=== PATIENT | male | born 1975 | race Asian ===

== ENCOUNTER 2021-01-11 12:28 | Inpatient (IN) | payer OTHER ==
[~2021-01-11] VITALS: Ht 154.9 cm; Wt 68.5 kg
[2021-01-11 13:26] LABS: BASOPHILS % (AUTO) 0 % (0-1); EOSINOPHILS % (AUTO) 0 % (1-7); LYMPHOCYTES % (AUTO) 6 % (22-44); MEAN CORPUSCULAR HEMOGLOBIN 30.7 pg (27.5-34.5); MEAN CORPUSCULAR HGB CONC 34.6 g/dL (33.2-36.2); MONOCYTES % (AUTO) 5 % (2-9); NEUTROPHILS % (AUTO) 88 % (42-75); PLATELET COUNT 120 x10^3/uL (130-400); RED BLOOD COUNT 4.74 x10^6/uL (4.38-5.82)
[2021-01-11 13:36] LABS: ALBUMIN 2.9 g/dL (3.4-5.0); ANION GAP 7 mmol/L (5-15); CHLORIDE 98 mmol/L (98-107); CREATININE 0.88 mg/dL (0.7-1.3)
--- NOTE | 2021-01-11 14:29 | NUR ---
BREAK NOTE: PT. IS RESTING WITHOUT CONCERNS. PT. WAS GIVEN ICE CHIPS FOR HIS MOUTH.
[2021-01-11] MEDS ORDERED: DEXAMETHASONE 4 MG/ML, 1ML ONE ×2 (14:45→16:34)
[2021-01-11] MEDS ORDERED: SODIUM CHLORIDE 0.9% 1,000ML IVBOLUS ONE (15:00)
[2021-01-11] MEDS ORDERED: DEXAMETHASONE 4 MG/ML, 1ML IV ONE (15:00)
--- NOTE | 2021-01-11 15:01 | NUR ---
PT RESTING IN BED. FLUIDS INFUSING. CALL LIGHT IN REACH. VSS
[2021-01-11 15:41] LABS: C-REACTIVE PROTEIN, QUANT 9.2 mg/dL (0.02-0.49)
[2021-01-11 15:43] LABS: D-DIMER (DIC) 2.37 ug/mlFEU (0.00-0.52); PROTIME 10.5 Seconds (9.6-11.5)
[2021-01-11] MEDS ORDERED: ONDANSETRON 2MG/ML, 2ML IVPush PRN (16:00)
[2021-01-11] MEDS ORDERED: ENALAPRILAT 1.25 MG/ML, 2ML IVPush PRN (16:00)
[2021-01-11] MEDS ORDERED: CHOLECALCIFEROL 5,000u TAB ONE (16:34)
[2021-01-11] MEDS ORDERED: ZINC SULFATE 220 MG CAPSULE ONE (16:34)
[2021-01-11] MEDS ORDERED: ASCORBIC ACID 500 MG TABLET ONE (16:34)
[2021-01-11] MEDS ORDERED: ENOXAPARIN 40 MG/0.4 ML ONE (16:34)
[2021-01-11] MEDS: ASCORBIC ACID 500 MG TABLET PO SCH (16:36)
[2021-01-11] MEDS: ZINC SULFATE 220 MG CAPSULE PO SCH (16:36)
[2021-01-11] MEDS: ENOXAPARIN 40 MG/0.4 ML SQ SCH (16:37)
[2021-01-11] MEDS: CHOLECALCIFEROL 5,000u TAB PO SCH (16:37)
[2021-01-11] MEDS ORDERED: OMNIPAQUE 350 MG/ML, 100ML BOTTLE ONE (17:07)
--- NOTE | 2021-01-11 17:15 | NUR ---
FOOD DELIEVERED TO PT
--- NOTE | 2021-01-11 17:21 | NUR ---
PT OXYGEN DROPPED TO 79% WHILE EATING. INCREASED O2 UP TO 7L NC AND TOLD PT TO EAT SLOWLY AND TAKE DEEP BREATHS OFTEN.
[2021-01-11 17:40] LABS: ALANINE AMINOTRANSFERASE 102 U/L (12-78); ALBUMIN 2.7 g/dL (3.4-5.0); ANION GAP 7 mmol/L (5-15); CALCIUM 8.1 mg/dL (8.5-10.1); CHLORIDE 100 mmol/L (98-107)
[2021-01-11 17:42] LABS: ALKALINE PHOSPHATASE 54 U/L (45-117); BILIRUBIN,TOTAL 0.7 mg/dL (0.2-1.0); TOTAL PROTEIN 7.1 g/dL (6.4-8.2)
[2021-01-11] MEDS ORDERED: REMDESIVIR 200 MG in SODIUM CHLORIDE 0.9% 100 ML IVPB ONE (18:00)
[2021-01-11] MEDS: CEFTRIAXONE 2 GM in DEXTROSE 5% 50 ML IVPB SCH (18:10)
[2021-01-11] MEDS: DOXYCYCLINE 100MG TABLET PO SCH (18:10)
[2021-01-11 18:42] VITALS: BP 119/73
[2021-01-12 00:20] VITALS: BP 99/66
[2021-01-12 02:49] LABS: CLOSTRIDIUM DIFFICILE ANTIGEN NEGATIVE; CLOSTRIDIUM DIFFICILE TOXIN NEGATIVE (Negative)
[2021-01-12 05:10] LABS: BASOPHILS % (AUTO) 0 % (0-1); EOSINOPHILS % (AUTO) 0 % (1-7); LYMPHOCYTES % (AUTO) 7 % (22-44); MEAN CORPUSCULAR HEMOGLOBIN 30.8 pg (27.5-34.5); MEAN PLATELET VOLUME 8.6 fL (7.4-10.4); MONOCYTES % (AUTO) 6 % (2-9); NEUTROPHILS % (AUTO) 88 % (42-75); PLATELET COUNT 128 x10^3/uL (130-400); RED BLOOD COUNT 4.62 x10^6/uL (4.38-5.82); RED CELL DISTRIBUTION WIDTH 12.9 % (9.4-14.8)
[2021-01-12 05:22] LABS: ALBUMIN 2.4 g/dL (3.4-5.0); ANION GAP 7 mmol/L (5-15); CALCIUM 8.2 mg/dL (8.5-10.1); CHLORIDE 101 mmol/L (98-107)
[2021-01-12 05:26] LABS: ALANINE AMINOTRANSFERASE 82 U/L (12-78); ALKALINE PHOSPHATASE 56 U/L (45-117); BILIRUBIN,TOTAL 0.5 mg/dL (0.2-1.0); CREATININE 0.69 mg/dL (0.7-1.3); TOTAL PROTEIN 6.7 g/dL (6.4-8.2)
[2021-01-12 07:06] VITALS: BP 108/65
[2021-01-12] MEDS: ASCORBIC ACID 500 MG TABLET PO SCH ×2 (07:57→16:06)
[2021-01-12 08:23] VITALS: BP 120/70
[2021-01-12] MEDS: ZINC SULFATE 220 MG CAPSULE PO SCH (08:33)
[2021-01-12] MEDS: DOXYCYCLINE 100MG TABLET PO SCH ×2 (08:33→20:02)
[2021-01-12] MEDS: CHOLECALCIFEROL 5,000u TAB PO SCH (08:34)
[2021-01-12] MEDS: DEXAMETHASONE 4 MG/ML, 1ML IVPush SCH (08:34)
[2021-01-12] MEDS ORDERED: THIAMINE 100MG TABLET PO ONE (09:00)
[2021-01-12 13:07] VITALS: BP 120/88
[2021-01-12] MEDS: ENOXAPARIN 40 MG/0.4 ML SQ SCH (16:06)
[2021-01-12] MEDS: CEFTRIAXONE 2 GM in DEXTROSE 5% 50 ML IVPB SCH (17:54)
[2021-01-12] MEDS: REMDESIVIR 100 MG in SODIUM CHLORIDE 0.9% 100 ML IVPB SCH (18:37)
[2021-01-12 19:47] VITALS: BP 114/77
[2021-01-13 01:14] VITALS: BP 112/70
[2021-01-13] MEDS: ZINC SULFATE 220 MG CAPSULE PO SCH (08:49)
[2021-01-13] MEDS: CHOLECALCIFEROL 5,000u TAB PO SCH (08:49)
[2021-01-13] MEDS: ASCORBIC ACID 500 MG TABLET PO SCH ×2 (08:49→16:00)
[2021-01-13] MEDS: DOXYCYCLINE 100MG TABLET PO SCH ×2 (08:49→20:45)
[2021-01-13] MEDS: DEXAMETHASONE 4 MG/ML, 1ML IVPush SCH (08:51)
[2021-01-13 08:52] VITALS: BP 110/67
[2021-01-13 09:24] LABS: ALBUMIN 2.5 g/dL (3.4-5.0); ANION GAP 9 mmol/L (5-15); CALCIUM 8.5 mg/dL (8.5-10.1); CHLORIDE 102 mmol/L (98-107)
[2021-01-13 09:25] LABS: BASOPHILS % (AUTO) 0 % (0-1); EOSINOPHILS % (AUTO) 0 % (1-7); HCT (SEDRATE) 42.7 % (39.2-51.8); LYMPHOCYTES % (AUTO) 9 % (22-44); MEAN CORPUSCULAR HEMOGLOBIN 30.6 pg (27.5-34.5); MEAN CORPUSCULAR HGB CONC 34.7 g/dL (33.2-36.2); MEAN PLATELET VOLUME 8.2 fL (7.4-10.4); MONOCYTES % (AUTO) 9 % (2-9); NEUTROPHILS % (AUTO) 83 % (42-75); PLATELET COUNT 204 x10^3/uL (130-400); RED BLOOD COUNT 4.84 x10^6/uL (4.38-5.82); RED CELL DISTRIBUTION WIDTH 13.4 % (9.4-14.8)
[2021-01-13 09:30] LABS: D-DIMER 4.12 ug/mlFEU (0.00-0.52)
[2021-01-13 09:45] LABS: ALANINE AMINOTRANSFERASE 70 U/L (12-78); ALKALINE PHOSPHATASE 71 U/L (45-117); BILIRUBIN,TOTAL 0.7 mg/dL (0.2-1.0); CREATININE 0.66 mg/dL (0.7-1.3); TOTAL PROTEIN 6.6 g/dL (6.4-8.2)
[2021-01-13] MEDS ORDERED: FUROSEMIDE 40 MG/4 ML IV ONE (11:30)
[2021-01-13 12:22] VITALS: BP 106/67
[2021-01-13] MEDS: ENOXAPARIN 40 MG/0.4 ML SQ SCH (15:59)
[2021-01-13] MEDS: REMDESIVIR 100 MG in SODIUM CHLORIDE 0.9% 100 ML IVPB SCH (17:00)
[2021-01-13] MEDS: CEFTRIAXONE 2 GM in DEXTROSE 5% 50 ML IVPB SCH (17:49)
[2021-01-13 20:40] VITALS: BP 114/64
[2021-01-14 02:00] VITALS: BP 109/68
[2021-01-14 04:22] LABS: BASOPHILS % (AUTO) 0 % (0-1); EOSINOPHILS % (AUTO) 0 % (1-7); LYMPHOCYTES % (AUTO) 7 % (22-44); MEAN CORPUSCULAR HEMOGLOBIN 30.8 pg (27.5-34.5); MEAN CORPUSCULAR HGB CONC 35.6 g/dL (33.2-36.2); MEAN PLATELET VOLUME 7.8 fL (7.4-10.4); MONOCYTES % (AUTO) 10 % (2-9); NEUTROPHILS % (AUTO) 84 % (42-75); PLATELET COUNT 222 x10^3/uL (130-400); RED BLOOD COUNT 4.85 x10^6/uL (4.38-5.82); RED CELL DISTRIBUTION WIDTH 12.8 % (9.4-14.8)
[2021-01-14 04:23] LABS: HCT (SEDRATE) 42.2 % (39.2-51.8)
[2021-01-14 04:34] LABS: ALBUMIN 2.4 g/dL (3.4-5.0); ANION GAP 9 mmol/L (5-15); CHLORIDE 98 mmol/L (98-107)
[2021-01-14 04:51] LABS: ALANINE AMINOTRANSFERASE 68 U/L (12-78); ALKALINE PHOSPHATASE 79 U/L (45-117); BILIRUBIN,TOTAL 0.9 mg/dL (0.2-1.0); TOTAL PROTEIN 6.4 g/dL (6.4-8.2)
[2021-01-14] MEDS: ZINC SULFATE 220 MG CAPSULE PO SCH (07:54)
[2021-01-14] MEDS: FUROSEMIDE 20 MG/2 ML IV SCH ×2 (07:54→16:40)
[2021-01-14] MEDS: DOXYCYCLINE 100MG TABLET PO SCH ×2 (07:54→20:03)
[2021-01-14] MEDS: DEXAMETHASONE 4 MG/ML, 1ML IVPush SCH (07:55)
[2021-01-14] MEDS: ASCORBIC ACID 500 MG TABLET PO SCH ×2 (07:55→16:40)
[2021-01-14] MEDS: CHOLECALCIFEROL 5,000u TAB PO SCH (07:55)
[2021-01-14] MEDS: ENOXAPARIN 40 MG/0.4 ML SQ SCH ×2 (07:57→20:03)
[2021-01-14 08:12] VITALS: BP 109/69
[2021-01-14 15:59] VITALS: BP 106/63
[2021-01-14] MEDS: REMDESIVIR 100 MG in SODIUM CHLORIDE 0.9% 100 ML IVPB SCH (16:41)
[2021-01-14] MEDS: CEFTRIAXONE 2 GM in DEXTROSE 5% 50 ML IVPB SCH (18:11)
[2021-01-14 19:57] VITALS: BP 95/58
[2021-01-15 00:41] VITALS: BP 112/78
[2021-01-15 05:14] LABS: CHLORIDE 96 mmol/L (98-107)
[2021-01-15 05:20] LABS: ALANINE AMINOTRANSFERASE 65 U/L (12-78); ALBUMIN 2.8 g/dL (3.4-5.0); ALKALINE PHOSPHATASE 79 U/L (45-117); ANION GAP 9 mmol/L (5-15); BILIRUBIN,TOTAL 1.3 mg/dL (0.2-1.0); CALCIUM 8.4 mg/dL (8.5-10.1); CREATININE 0.81 mg/dL (0.7-1.3); TOTAL PROTEIN 6.9 g/dL (6.4-8.2)
[2021-01-15 08:01] VITALS: BP 103/59
[2021-01-15] MEDS: FUROSEMIDE 20 MG/2 ML IV SCH ×3 (08:19→20:18)
[2021-01-15] MEDS: DOXYCYCLINE 100MG TABLET PO SCH ×2 (08:20→21:26)
[2021-01-15] MEDS: ASCORBIC ACID 500 MG TABLET PO SCH ×2 (08:20→17:22)
[2021-01-15] MEDS: ZINC SULFATE 220 MG CAPSULE PO SCH (08:20)
[2021-01-15] MEDS: CHOLECALCIFEROL 5,000u TAB PO SCH (08:20)
[2021-01-15] MEDS: DEXAMETHASONE 4 MG/ML, 1ML IVPush SCH (08:20)
[2021-01-15] MEDS: ENOXAPARIN 40 MG/0.4 ML SQ SCH ×2 (08:20→21:26)
[2021-01-15 13:00] VITALS: BP 110/67
[2021-01-15] MEDS: REMDESIVIR 100 MG in SODIUM CHLORIDE 0.9% 100 ML IVPB SCH ×2 (17:23→20:18)
[2021-01-15] MEDS: CEFTRIAXONE 2 GM in DEXTROSE 5% 50 ML IVPB SCH (21:27)
[2021-01-15 21:58] VITALS: BP 107/60
[2021-01-16 00:35] VITALS: BP 109/58
[2021-01-16] MEDS ORDERED: PHENYLEPHRINE NASAL 1%, 15ML SPRAY NAS PRN (02:00)
[2021-01-16] MEDS: DOXYCYCLINE 100MG TABLET PO SCH ×2 (09:39→21:46)
[2021-01-16] MEDS: CHOLECALCIFEROL 5,000u TAB PO SCH (09:39)
[2021-01-16] MEDS: ZINC SULFATE 220 MG CAPSULE PO SCH (09:39)
[2021-01-16] MEDS: ENOXAPARIN 40 MG/0.4 ML SQ SCH ×2 (09:39→21:46)
[2021-01-16] MEDS: ASCORBIC ACID 500 MG TABLET PO SCH ×2 (09:39→17:37)
[2021-01-16] MEDS: FUROSEMIDE 20 MG/2 ML IV SCH ×2 (09:40→17:37)
[2021-01-16] MEDS: DEXAMETHASONE 4 MG/ML, 1ML IVPush SCH (09:40)
[2021-01-16 12:52] VITALS: BP 107/66
[2021-01-16] MEDS: CEFTRIAXONE 2 GM in DEXTROSE 5% 50 ML IVPB SCH (17:37)
[2021-01-16 21:50] VITALS: BP 105/66
[2021-01-17 00:39] VITALS: BP 106/61
[2021-01-17 08:00] VITALS: BP 112/65
[2021-01-17] MEDS: FUROSEMIDE 20 MG/2 ML IV SCH ×2 (08:24→16:34)
[2021-01-17] MEDS: DOXYCYCLINE 100MG TABLET PO SCH ×2 (08:25→20:58)
[2021-01-17] MEDS: ZINC SULFATE 220 MG CAPSULE PO SCH (08:25)
[2021-01-17] MEDS: CHOLECALCIFEROL 5,000u TAB PO SCH (08:25)
[2021-01-17] MEDS: ASCORBIC ACID 500 MG TABLET PO SCH ×2 (08:25→16:34)
[2021-01-17] MEDS: DEXAMETHASONE 4 MG/ML, 1ML IVPush SCH (08:25)
[2021-01-17 08:26] LABS: FIO2 100 %; O2 FLOW 45 L/min
[2021-01-17] MEDS: ENOXAPARIN 40 MG/0.4 ML SQ SCH ×2 (08:26→20:58)
[2021-01-17 09:05] LABS: BASOPHILS % (AUTO) 0 % (0-1); EOSINOPHILS % (AUTO) 0 % (1-7); LYMPHOCYTES % (AUTO) 4 % (22-44); MEAN CORPUSCULAR HEMOGLOBIN 31.1 pg (27.5-34.5); MEAN CORPUSCULAR HGB CONC 35.9 g/dL (33.2-36.2); MEAN PLATELET VOLUME 8.2 fL (7.4-10.4); MONOCYTES % (AUTO) 2 % (2-9); NEUTROPHILS % (AUTO) 95 % (42-75); PLATELET COUNT 270 x10^3/uL (130-400); RED BLOOD COUNT 4.98 x10^6/uL (4.38-5.82); RED CELL DISTRIBUTION WIDTH 12.7 % (9.4-14.8)
[2021-01-17 09:10] LABS: HCT (SEDRATE) 43.1 % (39.2-51.8)
[2021-01-17 11:08] LABS: ALANINE AMINOTRANSFERASE 41 U/L (12-78); ALBUMIN 2.6 g/dL (3.4-5.0); ANION GAP 16 mmol/L (5-15); CALCIUM 8.1 mg/dL (8.5-10.1); CHLORIDE 92 mmol/L (98-107)
[2021-01-17 11:10] LABS: ALKALINE PHOSPHATASE 89 U/L (45-117); BILIRUBIN,TOTAL 1.8 mg/dL (0.2-1.0); TOTAL PROTEIN 6.9 g/dL (6.4-8.2)
[2021-01-17 12:29] VITALS: BP 114/73
[2021-01-17] MEDS ORDERED: POTASSIUM CHLORIDE 20 MEQ TAB.ER.PRT PO ONE (13:00)
[2021-01-17] MEDS ORDERED: TOCILIZUMAB 600 MG in SODIUM CHLORIDE 0.9% 70 ML IVPB ONE (14:00)
[2021-01-17] MEDS ORDERED: FILTER 0.22 MICRON IV ONE (14:00)
[2021-01-17] MEDS: CEFTRIAXONE 2 GM in DEXTROSE 5% 50 ML IVPB SCH (16:34)
[2021-01-17 20:45] VITALS: BP 112/60
[2021-01-18] VITALS (23 sets, daily range): BP systolic 86–168; BP diastolic 51–118
[2021-01-18 03:46] LABS: ANION GAP 11 mmol/L (5-15); CALCIUM 7.7 mg/dL (8.5-10.1); CHLORIDE 91 mmol/L (98-107); CREATININE 0.73 mg/dL (0.7-1.3)
[2021-01-18] MEDS ORDERED: POTASSIUM CHLORIDE 20 MEQ TAB.ER.PRT PO SCH (08:00)
[2021-01-18] MEDS: ENOXAPARIN 40 MG/0.4 ML SQ SCH ×2 (08:02→21:27)
[2021-01-18] MEDS: POTASSIUM CHLORIDE 20 MEQ TAB.ER.PRT PO SCH (08:03)
[2021-01-18] MEDS: FUROSEMIDE 40 MG/4 ML IV SCH ×2 (08:03→17:36)
[2021-01-18] MEDS: DOXYCYCLINE 100MG TABLET PO SCH ×2 (08:03→21:27)
[2021-01-18] MEDS: ZINC SULFATE 220 MG CAPSULE PO SCH (08:03)
[2021-01-18] MEDS: CHOLECALCIFEROL 5,000u TAB PO SCH (08:03)
[2021-01-18] MEDS: ASCORBIC ACID 500 MG TABLET PO SCH ×2 (08:03→17:21)
[2021-01-18] MEDS: DEXAMETHASONE 4 MG/ML, 1ML IVPush SCH (08:04)
[2021-01-18] MEDS: CEFTRIAXONE 2 GM in DEXTROSE 5% 50 ML IVPB SCH (17:22)
[2021-01-18] MEDS: MIDODRINE 5 MG TABLET PO SCH ×2 (17:42→21:27)
[2021-01-19] VITALS (12 sets, daily range): BP systolic 90–108; BP diastolic 52–68
[2021-01-19 06:21] LABS: BASOPHILS % (AUTO) 0 % (0-1); EOSINOPHILS % (AUTO) 2 % (1-7); LYMPHOCYTES % (AUTO) 1 % (22-44); MEAN CORPUSCULAR HEMOGLOBIN 30.5 pg (27.5-34.5); MEAN CORPUSCULAR HGB CONC 34.5 g/dL (33.2-36.2); MONOCYTES % (AUTO) 2 % (2-9); NEUTROPHILS % (AUTO) 95 % (42-75); PLATELET COUNT 299 x10^3/uL (130-400); RED CELL DISTRIBUTION WIDTH 13.3 % (9.4-14.8)
[2021-01-19 06:27] LABS: ALBUMIN 2.1 g/dL (3.4-5.0); ANION GAP 8 mmol/L (5-15); CALCIUM 7.9 mg/dL (8.5-10.1); CHLORIDE 94 mmol/L (98-107)
[2021-01-19 06:31] LABS: ALANINE AMINOTRANSFERASE 28 U/L (12-78); ALKALINE PHOSPHATASE 131 U/L (45-117); CREATININE 0.89 mg/dL (0.7-1.3); TOTAL PROTEIN 6.5 g/dL (6.4-8.2)
[2021-01-19] MEDS: FUROSEMIDE 40 MG/4 ML IV SCH ×2 (07:54→18:12)
[2021-01-19] MEDS: POTASSIUM CHLORIDE 20 MEQ TAB.ER.PRT PO SCH (07:55)
[2021-01-19] MEDS: ASCORBIC ACID 500 MG TABLET PO SCH ×2 (07:55→18:11)
[2021-01-19] MEDS: CHOLECALCIFEROL 5,000u TAB PO SCH (09:54)
[2021-01-19] MEDS: ZINC SULFATE 220 MG CAPSULE PO SCH (09:54)
[2021-01-19] MEDS: DOXYCYCLINE 100MG TABLET PO SCH (09:54)
[2021-01-19] MEDS: ENOXAPARIN 40 MG/0.4 ML SQ SCH (09:55)
[2021-01-19] MEDS: DEXAMETHASONE 4 MG/ML, 1ML IVPush SCH (09:55)
[2021-01-19] MEDS: MIDODRINE 5 MG TABLET PO SCH ×3 (10:04→21:03)
[2021-01-19] MEDS: THIAMINE 100MG TABLET PO SCH (18:11)
[2021-01-19] MEDS: ENOXAPARIN 60 MG/0.6 ML SQ SCH (22:18)
[2021-01-20 02:56] VITALS: BP 100/62
[2021-01-20 05:13] LABS: BASOPHILS % (AUTO) 0 % (0-1); EOSINOPHILS % (AUTO) 2 % (1-7); LYMPHOCYTES % (AUTO) 1 % (22-44); MEAN CORPUSCULAR HEMOGLOBIN 30.3 pg (27.5-34.5); MONOCYTES % (AUTO) 2 % (2-9); NEUTROPHILS % (AUTO) 96 % (42-75); PLATELET COUNT 213 x10^3/uL (130-400); RED BLOOD COUNT 5.12 x10^6/uL (4.38-5.82); RED CELL DISTRIBUTION WIDTH 13.1 % (9.4-14.8)
[2021-01-20 05:22] LABS: ALBUMIN 2.5 g/dL (3.4-5.0); ANION GAP 9 mmol/L (5-15); CALCIUM 8.3 mg/dL (8.5-10.1); CHLORIDE 94 mmol/L (98-107)
[2021-01-20 05:28] LABS: ALANINE AMINOTRANSFERASE 23 U/L (12-78); ALKALINE PHOSPHATASE 165 U/L (45-117); CREATININE 0.85 mg/dL (0.7-1.3); TOTAL PROTEIN 6.8 g/dL (6.4-8.2)
[2021-01-20 08:00] VITALS: BP 110/74
[2021-01-20] MEDS ORDERED: ZINC SULFATE 220 MG CAPSULE PO ONE (09:00)
[2021-01-20] MEDS ORDERED: CHOLECALCIFEROL 5,000u TAB PO ONE (09:00)
[2021-01-20] MEDS: POTASSIUM CHLORIDE 20 MEQ TAB.ER.PRT PO SCH (09:21)
[2021-01-20] MEDS: DEXAMETHASONE 4 MG/ML, 1ML IVPush SCH (09:21)
[2021-01-20] MEDS: THIAMINE 100MG TABLET PO SCH (09:21)
[2021-01-20] MEDS: FUROSEMIDE 40 MG/4 ML IV SCH ×2 (09:21→21:06)
[2021-01-20] MEDS: ASCORBIC ACID 500 MG TABLET PO SCH ×2 (09:22→21:06)
[2021-01-20] MEDS: ENOXAPARIN 60 MG/0.6 ML SQ SCH ×2 (09:22→21:06)
[2021-01-20] MEDS: MIDODRINE 5 MG TABLET PO SCH ×3 (09:22→21:06)
[2021-01-20] MEDS ORDERED: PROPOFOL 100 ML IV ONE ×2 (12:30→17:32)
[2021-01-20] MEDS ORDERED: FENTANYL PF 100 MCG/2ML ONE (13:45)
[2021-01-20] MEDS ORDERED: LIDOCAINE-MPF 1%, 2ML ONE (14:21)
[2021-01-20] MEDS: MIDAZOLAM HCL 50 MG in SODIUM CHLORIDE 0.9% 40 ML IV PRN (14:29)
[2021-01-20] MEDS: FENTANYL PF 100 MCG/2ML IVPush PRN (14:30)
[2021-01-20] MEDS ORDERED: FENTANYL PF 100 MCG/2ML IVPush ONE (14:30)
[2021-01-20] MEDS ORDERED: TPN PER PHARMACY MC SCH (17:00)
[2021-01-20] MEDS ORDERED: DEXTROSE 10% 500 ML IV PRN (17:00)
[2021-01-20] MEDS ORDERED: [UNRECOGNIZED DRUG - OTHER] IV SCH (17:00)
[2021-01-20] MEDS ORDERED: SMOF TPN IV SCH (17:00)
[2021-01-20] MEDS ORDERED: AMINO ACID 10% IV SCH (17:00)
[2021-01-20] MEDS ORDERED: FILTER, DISP 1.2 MICRON FOR TPN/PVN IV PRN (17:00)
[2021-01-20] MEDS ORDERED: DEXTROSE 70% IV SCH (17:00)
[2021-01-20] MEDS ORDERED: DEXTROSE 50%, 50ML SYRINGE IVPush PRN (17:00)
[2021-01-20] MEDS ORDERED: FAT EMUL IV SCH (17:00)
[2021-01-20] MEDS: PROPOFOL 100 ML IV PRN ×2 (17:57→21:38)
[2021-01-20] MEDS: INSULIN REGULAR LOW DOSE Q6H X 48HRS SQ-INSULIN SCH (21:00)
[2021-01-21] MEDS: MIDAZOLAM HCL 50 MG in SODIUM CHLORIDE 0.9% 40 ML IV PRN ×2 (00:53→20:59)
[2021-01-21] MEDS: INSULIN REGULAR LOW DOSE Q6H X 48HRS SQ-INSULIN SCH ×4 (03:00→20:59)
[2021-01-21] MEDS: PROPOFOL 100 ML IV PRN ×4 (03:15→18:54)
[2021-01-21 04:17] LABS: ANION GAP 9 mmol/L (5-15); CALCIUM 8.2 mg/dL (8.5-10.1); CHLORIDE 94 mmol/L (98-107)
[2021-01-21 04:24] LABS: CREATININE 1.29 mg/dL (0.7-1.3); PREALBUMIN 31.4 mg/dL (20.0-40.0)
[2021-01-21] MEDS: FENTANYL PF 1,000 MCG in SODIUM CHLORIDE 0.9% 80 ML IV PRN (05:40)
[2021-01-21] MEDS ORDERED: SUCCINYLCHOLINE 20 MG/ML, 10ML ONE (06:27)
[2021-01-21] MEDS ORDERED: ETOMIDATE 20 MG/10 ML ONE (06:27)
[2021-01-21] MEDS ORDERED: PROPOFOL 10 MG/ML, 100ML IV ONE (06:27)
[2021-01-21] MEDS: FUROSEMIDE 40 MG/4 ML IV SCH ×2 (08:15→18:00)
[2021-01-21] MEDS: ASCORBIC ACID 500 MG TABLET PO SCH ×2 (08:16→20:58)
[2021-01-21] MEDS: DEXAMETHASONE 4 MG/ML, 1ML IVPush SCH (08:16)
[2021-01-21] MEDS: MIDODRINE 5 MG TABLET PO SCH ×3 (08:16→20:59)
[2021-01-21] MEDS: POTASSIUM CHLORIDE 20 MEQ TAB.ER.PRT PO SCH (08:16)
[2021-01-21] MEDS: THIAMINE 100MG TABLET PO SCH (11:12)
[2021-01-21] MEDS: ENOXAPARIN 60 MG/0.6 ML SQ SCH ×2 (11:12→20:58)
[2021-01-22] MEDS: PROPOFOL 100 ML IV PRN ×5 (00:47→20:50)
[2021-01-22] MEDS: INSULIN REGULAR LOW DOSE Q6H X 48HRS SQ-INSULIN SCH ×3 (03:00→11:34)
[2021-01-22] MEDS: FENTANYL PF 1,000 MCG in SODIUM CHLORIDE 0.9% 80 ML IV PRN (04:05)
[2021-01-22 04:33] LABS: MEAN CORPUSCULAR HGB CONC 34.5 g/dL (33.2-36.2); MEAN PLATELET VOLUME 8.8 fL (7.4-10.4); PLATELET COUNT 186 x10^3/uL (130-400); RED BLOOD COUNT 5.68 x10^6/uL (4.38-5.82); RED CELL DISTRIBUTION WIDTH 13.5 % (9.4-14.8)
[2021-01-22 04:40] LABS: ALBUMIN 2.7 g/dL (3.4-5.0); ANION GAP 10 mmol/L (5-15); CALCIUM 8.3 mg/dL (8.5-10.1); CHLORIDE 95 mmol/L (98-107)
[2021-01-22 04:43] LABS: ALANINE AMINOTRANSFERASE 25 U/L (12-78); ALKALINE PHOSPHATASE 127 U/L (45-117); BILIRUBIN,TOTAL 1.3 mg/dL (0.2-1.0); CREATININE 1.61 mg/dL (0.7-1.3); TOTAL PROTEIN 7.5 g/dL (6.4-8.2)
[2021-01-22 04:50] LABS: <PLATELET ESTIMATE> ADEQUATE; <RBC MORPHOLOGY> NORMAL; BANDS%(MANUAL) 1 % (0-7); LYMPH#(MANUAL) 1.22 x10^3/uL (1-3.4); LYMPHS% (MANUAL) 6 % (22-44); METAMYELOCYTES% (MANUAL) 1 % (0-1); MONOS#(MANUAL) 1.02 x10^3/uL (0.3-2.7); MONOS% (MANUAL) 5 % (2-9); SEG#(MANUAL) 17.66 x10^3/uL (1.8-6.8); SEGS% (MANUAL) 87 % (42-75)
[2021-01-22 04:51] LABS: <PLT MORPHOLOGY> NORMAL PLT MORPH
[2021-01-22] MEDS ORDERED: SENNA 176 MG/5 ML ORAL SOL NG PRN (09:30)
[2021-01-22] MEDS ORDERED: GLUCAGON 1 MG IM PRN (09:30)
[2021-01-22] MEDS ORDERED: DEXTROSE 50%, 50ML SYRINGE IVPush PRN (09:30)
[2021-01-22] MEDS ORDERED: PHARMACY MAY ADJ FOR RENAL FX MC SCH (09:30)
[2021-01-22] MEDS ORDERED: BISACODYL 10 MG SUPP PR PRN (09:30)
[2021-01-22] MEDS ORDERED: LIDOCAINE-MPF 1%, 2ML ENDO PRN (09:30)
[2021-01-22] MEDS ORDERED: LACTULOSE 20 GM/30 ML UDC NG PRN (09:30)
[2021-01-22] MEDS ORDERED: SENNA/DOCUSATE TABLET NG PRN (09:30)
[2021-01-22] MEDS: NOREPINEPHRINE 8 MG in SODIUM CHLORIDE 0.9% 242 ML IV PRN (10:02)
[2021-01-22] MEDS: ASCORBIC ACID 500 MG TABLET PO SCH ×2 (10:30→17:50)
[2021-01-22] MEDS: DEXAMETHASONE 4 MG/ML, 1ML IVPush SCH (10:30)
[2021-01-22] MEDS: MIDODRINE 5 MG TABLET PO SCH ×3 (10:30→20:49)
[2021-01-22] MEDS: THIAMINE 100MG TABLET PO SCH (10:31)
[2021-01-22] MEDS: ENOXAPARIN 40 MG/0.4 ML SQ SCH ×2 (11:33→20:49)
[2021-01-22] MEDS ORDERED: DILTIAZEM 5 MG/ML, 5ML ONE ×2 (12:09→12:34)
[2021-01-22] MEDS: LINEZOLID PMX 600MG/300ML 300 ML IV SCH (13:00)
[2021-01-22] MEDS ORDERED: FILTER 0.22 MICRON IV PRN (13:00)
[2021-01-22] MEDS ORDERED: DILTIAZEM 5 MG/ML, 5ML IVPush ONE (13:00)
[2021-01-22] MEDS ORDERED: AMIODARONE 150 MG in DEXTROSE 5% 100 ML IV ONE (13:00)
[2021-01-22] MEDS ORDERED: ACETAMINOPHEN 650 MG SUPP ONE (13:33)
[2021-01-22] MEDS: MEROPENEM 1 GM in SODIUM CHLORIDE 0.9% 100 ML IV SCH (13:42)
[2021-01-22] MEDS: ACETAMINOPHEN 325 MG TABLET PO PRN (13:44)
[2021-01-22] MEDS: MIDAZOLAM HCL 50 MG in SODIUM CHLORIDE 0.9% 40 ML IV PRN (16:07)
[2021-01-22] MEDS: AMIODARONE 450 MG in DEXTROSE 5% 241 ML IV PRN (18:20)
[2021-01-22] MEDS: FAMOTIDINE 20 MG/2 ML IVPush SCH (20:49)
[2021-01-22] MEDS: SODIUM CHLORIDE FLUSH 10ML SYR IVF SCH (20:50)
[2021-01-23] MEDS: PROPOFOL 100 ML IV PRN ×2 (00:37→05:52)
[2021-01-23] MEDS: MEROPENEM 1 GM in SODIUM CHLORIDE 0.9% 100 ML IV SCH ×2 (00:37→13:04)
[2021-01-23] MEDS: LINEZOLID PMX 600MG/300ML 300 ML IV SCH ×2 (01:46→13:57)
[2021-01-23] MEDS: AMIODARONE 450 MG in DEXTROSE 5% 241 ML IV PRN ×2 (03:03→19:00)
[2021-01-23 04:42] LABS: BASOPHILS % (AUTO) 1 % (0-1); EOSINOPHILS % (AUTO) 0 % (1-7); LYMPHOCYTES % (AUTO) 3 % (22-44); MEAN CORPUSCULAR HEMOGLOBIN 30.3 pg (27.5-34.5); MEAN CORPUSCULAR HGB CONC 33.9 g/dL (33.2-36.2); MEAN PLATELET VOLUME 8.7 fL (7.4-10.4); MONOCYTES % (AUTO) 4 % (2-9); NEUTROPHILS % (AUTO) 93 % (42-75); PLATELET COUNT 148 x10^3/uL (130-400); RED BLOOD COUNT 5.24 x10^6/uL (4.38-5.82)
[2021-01-23 04:55] LABS: ANION GAP 7 mmol/L (5-15); CHLORIDE 97 mmol/L (98-107); CREATININE 1.26 mg/dL (0.7-1.3)
[2021-01-23] MEDS: MIDAZOLAM HCL 50 MG in SODIUM CHLORIDE 0.9% 40 ML IV PRN (05:52)
[2021-01-23 06:19] LABS: MICROSCOPIC NOT IND
[2021-01-23] MEDS ORDERED: INSULIN REGULAR LOW DOSE QDAY SQ-INSULIN SCH (07:30)
[2021-01-23] MEDS: MIDODRINE 5 MG TABLET PO SCH ×3 (08:24→20:58)
[2021-01-23] MEDS: THIAMINE 100MG TABLET PO SCH (08:24)
[2021-01-23] MEDS: DEXAMETHASONE 4 MG/ML, 1ML IVPush SCH (08:24)
[2021-01-23] MEDS: FAMOTIDINE 20 MG/2 ML IVPush SCH ×2 (08:24→20:58)
[2021-01-23] MEDS: ASCORBIC ACID 500 MG TABLET PO SCH ×2 (08:24→15:44)
[2021-01-23] MEDS: SODIUM CHLORIDE FLUSH 10ML SYR IVF SCH ×2 (08:25→20:58)
[2021-01-23] MEDS: INSULIN LISPRO 100 UNITS/ML, PEN SQ-INSULIN SCH ×3 (09:00→21:00)
[2021-01-23] MEDS ORDERED: INSULIN LISPRO 100 UNITS/ML, PEN SQ-INSULIN SCH (10:00)
[2021-01-23] MEDS: ENOXAPARIN 40 MG/0.4 ML SQ SCH ×2 (10:32→20:57)
[2021-01-23] MEDS: FENTANYL PF 1,000 MCG in SODIUM CHLORIDE 0.9% 80 ML IV PRN (13:03)
[2021-01-23] MEDS: SENNA 176 MG/5 ML ORAL SOL NG SCH (15:40)
[2021-01-24] MEDS: MEROPENEM 1 GM in SODIUM CHLORIDE 0.9% 100 ML IV SCH ×2 (00:32→12:25)
[2021-01-24] MEDS: LINEZOLID PMX 600MG/300ML 300 ML IV SCH ×2 (01:27→13:04)
[2021-01-24] MEDS: FENTANYL PF 1,000 MCG in SODIUM CHLORIDE 0.9% 80 ML IV PRN ×2 (01:29→15:52)
[2021-01-24] MEDS: INSULIN LISPRO 100 UNITS/ML, PEN SQ-INSULIN SCH ×4 (03:04→20:46)
[2021-01-24] MEDS: MIDAZOLAM HCL 50 MG in SODIUM CHLORIDE 0.9% 40 ML IV PRN ×2 (04:05→20:58)
[2021-01-24 04:33] LABS: MEAN CORPUSCULAR HEMOGLOBIN 31.2 pg (27.5-34.5); MEAN CORPUSCULAR HGB CONC 34.5 g/dL (33.2-36.2); MEAN PLATELET VOLUME 9.1 fL (7.4-10.4); PLATELET COUNT 132 x10^3/uL (130-400); RED BLOOD COUNT 4.68 x10^6/uL (4.38-5.82); RED CELL DISTRIBUTION WIDTH 13.3 % (9.4-14.8)
[2021-01-24 04:42] LABS: ANION GAP 4 mmol/L (5-15); CALCIUM 7.6 mg/dL (8.5-10.1); CHLORIDE 100 mmol/L (98-107); CREATININE 0.99 mg/dL (0.7-1.3)
[2021-01-24 05:17] LABS: <PLATELET ESTIMATE> ADEQUATE; <PLT MORPHOLOGY> NORMAL PLT MORPH; <RBC MORPHOLOGY> NORMAL; LYMPH#(MANUAL) 0.56 x10^3/uL (1-3.4); LYMPHS% (MANUAL) 3 % (22-44); METAMYELOCYTES# (MANUAL) 0.19 x10^3/uL (0-0); METAMYELOCYTES% (MANUAL) 1 % (0-1); MONOS#(MANUAL) 0.37 x10^3/uL (0.3-2.7); MONOS% (MANUAL) 2 % (2-9); MYELOCYTES# (MANUAL) 0.37 x10^3/uL (0-0); MYELOCYTES% (MANUAL) 2 % (0-0); REACTIVE LYMPHS # (MANUAL) 0.19 x10^3/uL (0-0); REACTIVE LYMPHS % (MANUAL) 1 % (0-0); SEG#(MANUAL) 17.02 x10^3/uL (1.8-6.8); SEGS% (MANUAL) 91 % (42-75)
[2021-01-24] MEDS: ASCORBIC ACID 500 MG TABLET PO SCH ×2 (09:54→16:43)
[2021-01-24] MEDS: THIAMINE 100MG TABLET PO SCH (09:55)
[2021-01-24] MEDS: DEXAMETHASONE 4 MG/ML, 1ML IVPush SCH (09:55)
[2021-01-24] MEDS: SODIUM CHLORIDE FLUSH 10ML SYR IVF SCH ×2 (09:55→20:46)
[2021-01-24] MEDS: MIDODRINE 5 MG TABLET PO SCH ×3 (09:55→23:15)
[2021-01-24] MEDS: FAMOTIDINE 20 MG/2 ML IVPush SCH ×2 (09:55→20:46)
[2021-01-24] MEDS: ENOXAPARIN 40 MG/0.4 ML SQ SCH ×2 (09:57→23:14)
[2021-01-24] MEDS: SENNA 176 MG/5 ML ORAL SOL NG SCH (10:52)
[2021-01-24] MEDS: AMIODARONE 200 MG TABLET NG SCH ×2 (10:53→20:46)
[2021-01-24] MEDS: FENTANYL PF 100 MCG/2ML IVPush PRN (17:55)
[2021-01-24] MEDS: ACETAMINOPHEN 325 MG TABLET PO PRN (20:45)
[2021-01-25] MEDS: FENTANYL PF 2,500 MCG in SODIUM CHLORIDE 0.9% 200 ML IV PRN ×2 (00:58→17:17)
[2021-01-25] MEDS: MEROPENEM 1 GM in SODIUM CHLORIDE 0.9% 100 ML IV SCH ×3 (01:07→21:58)
[2021-01-25] MEDS: LINEZOLID PMX 600MG/300ML 300 ML IV SCH ×2 (01:45→14:41)
[2021-01-25 03:44] LABS: MEAN PLATELET VOLUME 8.8 fL (7.4-10.4); PLATELET COUNT 128 x10^3/uL (130-400); RED BLOOD COUNT 4.75 x10^6/uL (4.38-5.82); RED CELL DISTRIBUTION WIDTH 13.5 % (9.4-14.8)
[2021-01-25 03:56] LABS: ANION GAP 6 mmol/L (5-15); CHLORIDE 101 mmol/L (98-107)
[2021-01-25 03:57] LABS: CREATININE 1.02 mg/dL (0.7-1.3)
[2021-01-25 03:58] LABS: TRIGLYCERIDES 366 mg/dL (50-200)
[2021-01-25] MEDS: INSULIN LISPRO 100 UNITS/ML, PEN SQ-INSULIN SCH ×4 (04:26→21:00)
[2021-01-25 04:28] LABS: <PLATELET ESTIMATE> DECREASED; <PLT MORPHOLOGY> NORMAL PLT MORPH; <RBC MORPHOLOGY> NORMAL; BAND#(MANUAL) 1.44 x10^3/uL; BANDS%(MANUAL) 4 % (0-7); LYMPH#(MANUAL) 1.08 x10^3/uL (1-3.4); LYMPHS% (MANUAL) 3 % (22-44); MONOS#(MANUAL) 1.44 x10^3/uL (0.3-2.7); MONOS% (MANUAL) 4 % (2-9); MYELOCYTES# (MANUAL) 0.36 x10^3/uL (0-0); MYELOCYTES% (MANUAL) 1 % (0-0); SEG#(MANUAL) 31.68 x10^3/uL (1.8-6.8); SEGS% (MANUAL) 88 % (42-75)
[2021-01-25] MEDS: SENNA 176 MG/5 ML ORAL SOL NG SCH (07:47)
[2021-01-25] MEDS: THIAMINE 100MG TABLET PO SCH (07:59)
[2021-01-25] MEDS: AMIODARONE 200 MG TABLET NG SCH ×2 (08:00→20:25)
[2021-01-25] MEDS: ENOXAPARIN 40 MG/0.4 ML SQ SCH ×2 (08:00→21:59)
[2021-01-25] MEDS: DEXAMETHASONE 4 MG/ML, 1ML IVPush SCH (08:00)
[2021-01-25] MEDS: MIDODRINE 5 MG TABLET PO SCH ×3 (08:00→20:25)
[2021-01-25] MEDS: ASCORBIC ACID 500 MG TABLET PO SCH (08:00)
[2021-01-25] MEDS: FAMOTIDINE 20 MG/2 ML IVPush SCH ×2 (08:00→20:25)
[2021-01-25] MEDS: SODIUM CHLORIDE FLUSH 10ML SYR IVF SCH ×2 (08:01→20:26)
[2021-01-25] MEDS: MIDAZOLAM HCL 50 MG in SODIUM CHLORIDE 0.9% 40 ML IV PRN ×2 (09:16→20:36)
[2021-01-25] MEDS: FENTANYL PF 100 MCG/2ML IVPush PRN (14:11)
[2021-01-26] MEDS: LINEZOLID PMX 600MG/300ML 300 ML IV SCH (01:05)
[2021-01-26] MEDS: INSULIN LISPRO 100 UNITS/ML, PEN SQ-INSULIN SCH ×4 (03:00→20:19)
[2021-01-26] MEDS: MIDAZOLAM HCL 50 MG in SODIUM CHLORIDE 0.9% 40 ML IV PRN ×2 (05:57→12:58)
[2021-01-26] MEDS: MEROPENEM 1 GM in SODIUM CHLORIDE 0.9% 100 ML IV SCH ×3 (06:30→22:11)
[2021-01-26] MEDS: SENNA 176 MG/5 ML ORAL SOL NG SCH (07:28)
[2021-01-26] MEDS: DEXAMETHASONE 4 MG/ML, 1ML IV SCH (07:51)
[2021-01-26] MEDS: FAMOTIDINE 20 MG/2 ML IVPush SCH ×2 (07:51→20:20)
[2021-01-26] MEDS: SODIUM CHLORIDE FLUSH 10ML SYR IVF SCH ×2 (07:52→22:10)
[2021-01-26] MEDS: AMIODARONE 200 MG TABLET NG SCH (07:52)
[2021-01-26] MEDS: THIAMINE 100MG TABLET PO SCH (07:53)
[2021-01-26] MEDS: MIDODRINE 5 MG TABLET PO SCH ×3 (07:53→20:20)
[2021-01-26] MEDS ORDERED: RIVAROXABAN 20 MG TABLET ONE (07:57)
[2021-01-26] MEDS: RIVAROXABAN 20 MG TABLET PO SCH (07:58)
[2021-01-26] MEDS: LINEZOLID 600 MG TABLET NG SCH ×2 (08:00→20:20)
[2021-01-26 08:12] LABS: ANION GAP 5 mmol/L (5-15); CALCIUM 7.9 mg/dL (8.5-10.1); CHLORIDE 101 mmol/L (98-107); CREATININE 0.82 mg/dL (0.7-1.3); MEAN CORPUSCULAR HEMOGLOBIN 30.7 pg (27.5-34.5); MEAN CORPUSCULAR HGB CONC 33.5 g/dL (33.2-36.2); PLATELET COUNT 100 x10^3/uL (130-400); RED CELL DISTRIBUTION WIDTH 13.5 % (9.4-14.8)
[2021-01-26 08:39] LABS: BANDS%(MANUAL) 2 % (0-7); METAMYELOCYTES% (MANUAL) 1 % (0-1)
[2021-01-26 08:40] LABS: <PLATELET ESTIMATE> DECREASED; <PLT MORPHOLOGY> NORMAL PLT MORPH; <RBC MORPHOLOGY> NORMAL; LYMPHS% (MANUAL) 2 % (22-44); MONOS% (MANUAL) 2 % (2-9); SEG#(MANUAL) 18.79 x10^3/uL (1.8-6.8); SEGS% (MANUAL) 93 % (42-75)
[2021-01-26] MEDS: FENTANYL PF 2,500 MCG in SODIUM CHLORIDE 0.9% 200 ML IV PRN ×2 (10:39→23:36)
[2021-01-26] MEDS ORDERED: TOCILIZUMAB 600 MG in SODIUM CHLORIDE 0.9% 70 ML IVPB ONE (11:00)
[2021-01-26] MEDS ORDERED: VECURONIUM 10 MG ONE (13:15)
[2021-01-26] MEDS ORDERED: VECURONIUM 10 MG IVPush ONE (13:30)
[2021-01-26] MEDS: FUROSEMIDE 100 MG in SODIUM CHLORIDE 0.9% 90 ML IV PRN (14:11)
[2021-01-26] MEDS: VECURONIUM 50 MG in SODIUM CHLORIDE 0.9% 50 ML IV PRN ×2 (15:11→18:04)
[2021-01-26] MEDS ORDERED: METOPROLOL 1 MG/ML, 5ML IVPush ONE (16:27)
[2021-01-26] MEDS ORDERED: METOPROLOL 1 MG/ML, 5ML ONE (16:27)
[2021-01-26] MEDS ORDERED: AMIODARONE 150 MG in DEXTROSE 5% 100 ML IV ONE (17:00)
[2021-01-26] MEDS ORDERED: FILTER 0.22 MICRON FOR AMIODARONE IV PRN (17:00)
[2021-01-26] MEDS: AMIODARONE 450 MG in DEXTROSE 5% 241 ML IV PRN (17:29)
[2021-01-27] MEDS: MIDAZOLAM HCL 50 MG in SODIUM CHLORIDE 0.9% 40 ML IV PRN ×3 (00:06→11:21)
[2021-01-27 04:41] LABS: MEAN CORPUSCULAR HEMOGLOBIN 30.6 pg (27.5-34.5); MEAN CORPUSCULAR HGB CONC 32.7 g/dL (33.2-36.2); PLATELET COUNT 76 x10^3/uL (130-400); RED BLOOD COUNT 4.96 x10^6/uL (4.38-5.82); RED CELL DISTRIBUTION WIDTH 14.3 % (9.4-14.8)
[2021-01-27 04:55] LABS: CHLORIDE 100 mmol/L (98-107)
[2021-01-27 05:02] LABS: CALCIUM 7.5 mg/dL (8.5-10.1); CREATININE 1.31 mg/dL (0.7-1.3)
[2021-01-27 05:14] LABS: ANION GAP 6 mmol/L (5-15)
[2021-01-27] MEDS: INSULIN LISPRO 100 UNITS/ML, PEN SQ-INSULIN SCH ×2 (05:52→08:06)
[2021-01-27] MEDS: RIVAROXABAN 20 MG TABLET PO SCH (05:53)
[2021-01-27] MEDS: FUROSEMIDE 100 MG in SODIUM CHLORIDE 0.9% 90 ML IV PRN (05:53)
[2021-01-27] MEDS: MEROPENEM 1 GM in SODIUM CHLORIDE 0.9% 100 ML IV SCH (05:53)
[2021-01-27 06:01] LABS: <PLATELET ESTIMATE> DECREASED; <PLT MORPHOLOGY> NORMAL PLT MORPH; <RBC MORPHOLOGY> NORMAL; BAND#(MANUAL) 0.75 x10^3/uL; BANDS%(MANUAL) 3 % (0-7); LYMPH#(MANUAL) 1.26 x10^3/uL (1-3.4); LYMPHS% (MANUAL) 5 % (22-44); METAMYELOCYTES# (MANUAL) 0.25 x10^3/uL (0-0); METAMYELOCYTES% (MANUAL) 1 % (0-1); MONOS#(MANUAL) 0.75 x10^3/uL (0.3-2.7); MONOS% (MANUAL) 3 % (2-9); SEG#(MANUAL) 22.09 x10^3/uL (1.8-6.8); SEGS% (MANUAL) 88 % (42-75)
[2021-01-27] MEDS ORDERED: INSULIN REGULAR 100 UNITS/ML, 3ML VIAL IVPush ONE (07:00)
[2021-01-27] MEDS ORDERED: CALCIUM GLUCONATE 0.46MEQ/1ML IVPush ONE (07:00)
[2021-01-27] MEDS ORDERED: CALCIUM GLUCONATE 4.6 MEQ in SODIUM CHLORIDE 0.9% 100 ML IV ONE (07:00)
[2021-01-27] MEDS: SODIUM ZIRCONIUM CYCLOSILICATE 10 GM PO SCH ×2 (07:32→11:34)
[2021-01-27] MEDS: NOREPINEPHRINE 8 MG in SODIUM CHLORIDE 0.9% 242 ML IV PRN (08:02)
[2021-01-27] MEDS: AMIODARONE 450 MG in DEXTROSE 5% 241 ML IV PRN (08:03)
[2021-01-27] MEDS: SENNA 176 MG/5 ML ORAL SOL NG SCH (08:59)
[2021-01-27] MEDS ORDERED: METOLAZONE 5 MG TABLET PO SCH (09:00)
[2021-01-27] MEDS: LINEZOLID 600 MG TABLET NG SCH (09:06)
[2021-01-27] MEDS: THIAMINE 100MG TABLET PO SCH (09:07)
[2021-01-27] MEDS: FAMOTIDINE 20 MG/2 ML IVPush SCH (09:07)
[2021-01-27] MEDS: MIDODRINE 5 MG TABLET PO SCH (09:07)
[2021-01-27] MEDS: DEXAMETHASONE 4 MG/ML, 1ML IV SCH (09:07)
[2021-01-27] MEDS: SODIUM CHLORIDE FLUSH 10ML SYR IVF SCH (09:08)
[2021-01-27] MEDS: FENTANYL PF 2,500 MCG in SODIUM CHLORIDE 0.9% 200 ML IV PRN (11:21)
[2021-01-31] MEDS ORDERED: AMIODARONE 200 MG TABLET NG SCH (09:00)
== END 2021-01-27 13:26 | DRG 870 ==
LOC: ED 14:18 → EDIP 15:47 → 3N 16:59 → 4WST 01-12 08:14 → ICU 01-17 11:58
PROVIDERS: ADMIT Hospitalist; ATTEND Internal Medicine
PROC: XW033E5 Introduction of Remdesivir Anti-infective into Peripheral Vein, Percutaneous Approach, New Technology Group 5 (ICD-10-PCS; principal; 2021-01-11)
PROC: 5A1955Z Respiratory Ventilation, Greater than 96 Consecutive Hours (ICD-10-PCS; 2021-01-20)
PROC: 0BH17EZ Insertion of Endotracheal Airway into Trachea, Via Natural or Artificial Opening (ICD-10-PCS; 2021-01-20)
PROC: 02HV33Z Insertion of Infusion Device into Superior Vena Cava, Percutaneous Approach (ICD-10-PCS; 2021-01-20)
PROC: B548ZZA Ultrasonography of Superior Vena Cava, Guidance (ICD-10-PCS; 2021-01-20)
PROC: 0T9B70Z Drainage of Bladder with Drainage Device, Via Natural or Artificial Opening (ICD-10-PCS; 2021-01-23)
DX: A41.89 Other specified sepsis (principal); G93.41 Metabolic encephalopathy; J12.82 Pneumonia due to coronavirus disease 2019; J96.01 Acute respiratory failure with hypoxia; U07.1 COVID-19; R57.9 Shock, unspecified; E87.6 Hypokalemia; E88.09 Other disorders of plasma-protein metabolism, not elsewhere classified; I48.91 Unspecified atrial fibrillation; T81.82XA Emphysema (subcutaneous) resulting from a procedure, initial encounter; R73.9 Hyperglycemia, unspecified
CPT/HCPCS: 36415; 36573; 36600; 71045; 71275; 80048; 80053; 81003; 82040; 82728; 82803; 82962; 83605; 83615; 83735; 84100; 84134; 84145; 84478; 85025; 85049; 85379; 85384; 85610; 85651; 85730; 86140; 87040; 87070; 87081; 87086; 87205; 87324; 93005; 94002; 94003; 94660; 96374; 96375; G0378; J0610; J0696; J1100; J1650; J1815; J1940; J2020; J2185; J2250; J2704; J3010; J7030; J7060; Q9967; U0005; C1751; J0282; J0330; J3262; J7050; U0003